=== PATIENT | female | born 1975 | race Caucasian/White ===

== ENCOUNTER → 2025-01-01 08:30 | Outpatient (BNVA) | payer BC, SELFPAY | PROVIDERS: PCP Nurse Practitioner Acute Care; Visit Provider Podiatrist Foot & Ankle Surgery | DX: M79.672 Pain in left foot (principal); S92.355A Nondisplaced fracture of fifth metatarsal bone, left foot, initial encounter for closed fracture; X58.XXXA Exposure to other specified factors, initial encounter | CPT/HCPCS: 73630 ==

== ENCOUNTER 2025-01-14 09:15 | Outpatient (CLI) | payer BC, SELFPAY | END 2025-01-14 09:16 | disposition home or self-care (01) | LOC: SPT 09:20 | PROVIDERS: PCP Nurse Practitioner Acute Care; Visit Provider Podiatrist Foot & Ankle Surgery | DX: Z46.89 Encounter for fitting and adjustment of other specified devices (principal); S92.354D Nondisplaced fracture of fifth metatarsal bone, right foot, subsequent encounter for fracture with routine healing; X58.XXXD Exposure to other specified factors, subsequent encounter | CPT/HCPCS: L4361 ==

== ENCOUNTER 2025-01-14 13:22 | Outpatient (CLI) | payer BC, SELFPAY ==
--- NOTE | 2025-01-14 13:28 | XR_ITS ---
WS: [id number] DEXA (DUAL ENERGY X-RAY ABSORPTIOMETRY) Bone mineral density was performed using a Arcaris machine. HISTORY: CLOSED NONDISPLACED FX OF FIFTH METATARSAL BONE OF L FOOT COMPARISON: None available. Lumbar spine BMD (L1-L4): 0.825 g/cm2 T score: -3.0 Z score: -2.5 Total hip BMD: Left: 0.848 g/cm2. T score: -1.3 Z score: -0.8 Right: 0.773 g/cm2. T score: -1.9 Z score: -1.4 10 year probability of a major osteoporotic fracture is 10.8%. XR/XR DEXA axial skeleton* 39006 IMPRESSION: OSTEOPOROSIS based upon the WHO classification for females.
== END 2025-01-14 13:23 | disposition home or self-care (01) ==
LOC: RAD 13:23
PROVIDERS: PCP Nurse Practitioner Acute Care; Visit Provider Nurse Practitioner Acute Care
DX: S92.355A Nondisplaced fracture of fifth metatarsal bone, left foot, initial encounter for closed fracture (principal); X58.XXXA Exposure to other specified factors, initial encounter; M81.0 Age-related osteoporosis without current pathological fracture
CPT/HCPCS: 73630; 77080

== ENCOUNTER → 2025-02-04 09:35 | Outpatient (BNVA) | payer BC, SELFPAY | PROVIDERS: PCP Nurse Practitioner Acute Care; Visit Provider Podiatrist Foot & Ankle Surgery | DX: S92.355G Nondisplaced fracture of fifth metatarsal bone, left foot, subsequent encounter for fracture with delayed healing (principal); X58.XXXD Exposure to other specified factors, subsequent encounter | CPT/HCPCS: 73630 ==

== ENCOUNTER 2025-02-15 05:56 | Day surgery (SDC) | payer BC, SELFPAY ==
[2025-02-15] VITALS (7 sets, daily range): BP systolic 95–110; BP diastolic 59–75; PULSE 67–73; RESP 12–18; TEMP 36.4–36.8; O2SAT 97–99; BMI 24.7
--- NOTE | 2025-02-15 06:12 | ANES.PREANE2 ---
Pre-Anesthetic Assessment Height/Weight: Height 5 ft 4 in Preop Diagnosis: Left fifth metatarsal fracture Operation Date: 02/15/25 07:00 Proposed Procedures p ORIF left fifth Metatarsal(Left) - Ty Lord DPM Was Beta Awais taken within 24 hours: N/A Was Clonidine taken within 24 hours: N/A Social No alcohol and No tobacco Exam alert, oriented x 3, clear to auscultation bilaterally and regular rate & rhythm Airway Submandibular: within normal limits Cervical ROM: within normal limits Mallampati: Class I Dentition: partials and full Anesthetic Plan ASA status: 3 Anesthesia: MAC Other: No prior issues with anesthesia NPO since yesterday evening History of lupus, states she was on prednisone previously but has stopped that since she found out she has osteoporosis Patient states she takes nifedipine for chest muscle spasms. Was having episodes of chest pain when she would do heavy activity like [place] the mountains. This is all resolved since taking this medication Patient is also on chronic Lasix Patient had recent labs done at [facility] outpatient facility. These were all WNL Medications/Allergies Home Medications ?Medication ?Instructions ?Recorded ?Confirmed ?Last Taken ?Type CAM walker #1 ea 01/01/25 02/04/25 Unknown Rx furosemide 20 mg tablet (Lasix) 20 mg PO DAILY 01/01/25 02/15/25 02/14/25 History hydroxychloroquine 200 mg tablet 200 mg PO BID 01/01/25 02/15/25 02/14/25 History (Plaquenil) meloxicam 15 mg tablet 15 mg PO DAILY 01/01/25 02/15/25 02/14/25 History CAM walker(short cam boot) #1 ea 01/17/25 02/04/25 Unknown Rx nifedipine 30 mg tablet,extended 30 mg PO DAILY 02/13/25 02/15/25 02/14/25 History release orphenadrine citrate 100 mg 100 mg PO BID PRN muscle spasms 02/13/25 02/15/25 02/14/25 History tablet,extended release pregabalin 150 mg capsule (Lyrica) 150 mg PO DAILY 02/13/25 02/15/25 02/14/25 History pregabalin 75 mg capsule (Lyrica) 75 mg PO BID 02/13/25 02/15/25 02/14/25 History zoledronic acid 5 mg/100 mL in ea IV 02/13/25 Unknown History mannitol 5 %-water intravenous piggybck (Reclast) Allergies Allergy/AdvReac Type Severity Reaction Status Date / Time aspirin Allergy ALGY-Anaphy Verified 02/15/25 06:04 laxis [facility] Anesthesia Social History Smoking and tobacco/nicotine status: never used tobacco/nicotine Alcohol intake: never Substance/Drug Use: never
--- NOTE | 2025-02-15 06:32 | W.PM.OPSUD ---
Surgery/Procedure H&P Update DATE OF PROCEDURE: February 15, 2025 DATE H&P PERFORMED: 02/04/25 H&P UPDATE INFORMATION: I have reviewed H&P completed within last 30 days, I have examined patient prior to procedure, No changes to prior documentation, H&P is in [facility] EMR on date indicated and Risks and benefits of the procedure reviewed PREOP DIAGNOSIS: Left fifth metatarsal fracture PLANNED PROCEDURE: Operation Date: 02/15/25 07:00 Proposed Procedures p ORIF left fifth Metatarsal(Left) - Ty Lord DPM
[2025-02-15] MEDS: ceFAZolin 2,000 mg SDV 2000 MG IVP (07:00)
[2025-02-15] MEDS: BUPivacaine 0.5% INJ 10 mL 20 ML INJECTION (07:20)
[2025-02-15] MEDS: BUPivacaine liposome 13.3 mg/mL SDV 20 mL 266 MG INJECTION (07:20)
--- NOTE | 2025-02-15 07:45 | P.BOP_ITS ---
Date of Procedure: 05/13/23 Surgeon: Ty Lord DPM Russian Language Professor(s): Zuleyma Procedure(s) performed: Open reduction internal fixation left fifth metatarsal fracture. Findings of the procedure(s): Left fifth metatarsal fracture. Estimated blood loss: 1 mL Specimen(s) removed: No specimens. Post-operative diagnosis: Left fifth metatarsal fracture.
--- NOTE | 2025-02-15 07:46 | PM.OP ---
Operative Report Date of procedure: February 15, 2025 Pre-op diagnosis: Closed nondisplaced fracture of fifth metatarsal bone of left foot with delayed healing, subsequent encounter S92.355G Post-op diagnosis: Closed nondisplaced fracture of fifth metatarsal bone of left foot with delayed healing, subsequent encounter S92.355G Procedure done: Open reduction internal fixation left fifth metatarsal fracture. CPT code 37916 Implants: 4-0 nylon, [place] Leonardo Precision screw 5.5 mm x 44 mm Surgeon: Ty Lord DPM Child Development Instructor: Zuleyma Estimated blood loss: 1 mL 19 minutes Brief History: Delayed healing left fifth metatarsal fracture discussed ORIF versus continued conservative management this is something she is weighing out pros and cons and will discuss this with family and work. Procedure: Under mild sedation the patient was brought to the operating room and remained on the gurney in supine position. A timeout was performed. Anesthesia was then administered by the anesthesia service. Local anesthesia injected by myself consisting of one-to-one mixture 0.5% Marcaine plain and Exparel total of 40 cc in a proximal reverse Reed block fashion to the left foot. Well-padded pneumatic tourniquet applied to the left ankle. The left lower extremity was scrubbed, prepped and draped utilizing normal aseptic technique. Left foot and ankle were exanguinated with an Esmarch bandage and tourniquet inflated to 250 mmHg. Attention was directed to the left foot where base of the fifth metatarsal was palpated, incision was performed with dissection carried down to the base of the left fifth metatarsal utilizing a combination of sharp and blunt technique. Care was taken to retract and preserve neurovascular and tendinous structures. All bleeders were ligated and cauterized as necessary. Utilizing standard AO technique a [place] 5.5 millimeter screw was advanced 44 mm in length across the fracture with a headed oriented proximally and threads distal to the fracture of the left fifth metatarsal and was placed excellently within the intramedullary canal not violating adjacent structures. Incision was irrigated with saline solution and closed with 4-0 nylon. Dressing of OpSite and application of a cam boot to the left lower extremity. Tourniquet was deflated and a prompt hyperemic response was noted to the distal digits of the left foot. Patient tolerated the procedure and anesthesia well and was transferred to the PACU with vital signs stable and vascular status intact. Following a period of postoperative monitoring she will be discharged home without home care instructions and scheduled follow-up.
[2025-02-15] MEDS: HYDROcodone-acetaminophen 10-325 mg Tablet 1 TAB PO (08:10)
--- NOTE | 2025-02-15 08:55 | ANE.PACU2 ---
Inpatient post-anesthesia follow up: Airway intact: Yes Vital signs: Temperature 97.5 F Pulse Rate 71 Respiratory Rate 16 Blood Pressure 101/68 Pulse Oximetry 97 Oxygen Delivery Me thod Room Air Oxygen Flow Rate Fraction of Inspir ed Oxygen Hydration adequate: Yes Nausea and vomiting: No Pain level: 1 Mental status: Baseline
--- NOTE | 2025-02-19 12:18 | XR_ITS ---
WS: [id number] Left foot, C-arm fluoroscopy views, 02/15/2025 Clinical Data: Open reduction internal fixation left fifth metatarsal fract Comparison: Left foot, 02/04/2025 Findings: Dr. Lord inserted an orthopedic screw to reduce the left fifth metatarsal fracture. XR/XR foot LT 2V [id number] Impression: Internal fixation of left fifth metatarsal fracture.
== END 2025-02-15 08:55 | disposition home or self-care (01) ==
PROVIDERS: PCP Nurse Practitioner Acute Care; Visit Provider Podiatrist Foot & Ankle Surgery
PROC: (CPT 28485; principal; 2025-02-15 07:00)
DX: S92.355G Nondisplaced fracture of fifth metatarsal bone, left foot, subsequent encounter for fracture with delayed healing (principal); X58.XXXD Exposure to other specified factors, subsequent encounter; K21.9 Gastro-esophageal reflux disease without esophagitis
CPT/HCPCS: 28485; 73620; 76000; C1713; J0666; J0690; J2250; J2704; J3010; J3490; J7030; J9999

== ENCOUNTER → 2025-02-27 14:39 | Outpatient (BNVA) | payer BC, SELFPAY | PROVIDERS: PCP Nurse Practitioner Acute Care; Visit Provider Podiatrist Foot & Ankle Surgery | DX: Z98.890 Other specified postprocedural states (principal); S92.352A Displaced fracture of fifth metatarsal bone, left foot, initial encounter for closed fracture; X58.XXXA Exposure to other specified factors, initial encounter | CPT/HCPCS: 73630 ==